=== PATIENT | male | born 1955 | race Caucasian/White ===

== ENCOUNTER → 2022-01-17 07:48 | Outpatient (CLI) | payer OTHER, SELFPAY ==
--- NOTE | ~2022-01-17 | XR_ITS ---
XR hip LT min 2V 01/17/2022 08:13 Indication: Left hip pain Procedure: 2 views left hip Comparison: No prior studies for comparison. Findings: There is moderate osteoarthritis of the left hip. No fracture, subluxation or dislocation. There is atherosclerosis of the femoral vessels. No foreign bodies. Impression: 1: Moderate osteoarthritis of the left hip. Reviewed, dictated and finalized at location A. Impression: 1: Moderate osteoarthritis of the left hip.
== END ==
PROVIDERS: PCP Family Medicine; Visit Provider Family Medicine
DX: M16.12 Unilateral primary osteoarthritis, left hip (principal)
CPT/HCPCS: 73502

== ENCOUNTER → 2022-02-06 11:43 | Outpatient (CLI) | payer OTHER, SELFPAY ==
--- NOTE | ~2022-02-06 | XR_ITS ---
XR knee LT 2V DATE: 02/06/2022 12:06 INDICATION: Left knee pain TECHNIQUE: Standing AP and lateral views COMPARISON: 08/08/2019 left knee FINDINGS: No fracture or dislocation or joint effusion. No periosteal reaction or bone destruction. N o radiopaque intra-articular loose body or chondrocalcinosis. There is mild osteoarthritis involving primarily the patellofemoral joint. Medial lateral compartment joint spaces appear relatively well preserved. No radiopaque intra-articul ar loose body or chondrocalcinosis.. IMPRESSION: Mild patellofemoral osteoarthritis Reviewed, dictated and finalized at location B.
== END ==
PROVIDERS: PCP Family Medicine; Visit Provider Physician Assistant
DX: M17.12 Unilateral primary osteoarthritis, left knee (principal)
CPT/HCPCS: 73560

== ENCOUNTER 2022-03-11 09:57 | Outpatient (CLI) | payer MEDICARE, SELFPAY ==
[2022-03-11 10:58] LABS: Basophils Percent Auto 0.6 % (0.2-1.2); Eosinophils Absolute Auto 0.2 K/mm3 (0-0.3); Hemoglobin 15.4 g/dL (14.0-18.0); Immature Granulocyte Absolute 0.02 K/mm3 (0.00-0.031); Immature Granulocyte Percent A 0.3 % (0-0.5); Lymphocytes Percent Auto 25.4 % (18.3-44.2); Mean Corpuscular HGB Conc 32.8 g/dl (32-36); Mean Corpuscular Hemoglobin 29.3 pg (26-34); Mean Corpuscular Volume 89.5 fl (80-100); Monocytes Absolute Auto 0.5 K/mm3 (0.1-0.6); Monocytes Percent Auto 6.7 % (2.6-8.5); Neutrophils Absolute Auto 4.3 K/mm3 (1.3-6.7); Platelet Count Result 374 k/mm3 (150-375); Red Blood Count 5.25 M/mm3 (4.6-6.20); Red Cell Distribution Width 13.7 % (11.5-14.5); White Blood Count 6.7 K/mm3 (4.5-10.0)
[2022-03-11 11:12] LABS: CRP < 0.5 mg/dL (<1.0); Uric Acid 5.1 mg/dL (3.5-8.5)
[2022-03-11 11:13] LABS: Rheumatoid Factor 20.4 IU/ML (<12)
[2022-03-11 11:26] LABS: Erythrocyte Sedimentation Rate 1 mm/hr (0-20)
== END 2022-03-11 09:58 | disposition home or self-care (01) ==
LOC: ANHLAB 10:15
PROVIDERS: PCP Family Medicine; Visit Provider Orthopaedic Surgery
DX: M16.12 Unilateral primary osteoarthritis, left hip (principal); M19.90 Unspecified osteoarthritis, unspecified site
CPT/HCPCS: 36415; 84550; 85025; 85652; 86038; 86140; 86430

== ENCOUNTER → 2022-03-13 07:58 | Outpatient (CLI) | payer MEDICARE, SELFPAY ==
--- NOTE | ~2022-03-13 | MR_ITS ---
EXAMINATION: MR hip LT wo con DATE: 03/13/2022 08:57 INDICATION: Left hip pain. TECHNIQUE: Magnetic resonance imaging (MRI) of the left hip was performed without intravenous contras t. COMPARISON: Left hip radiographs 03/11/2022 FINDINGS: Bones/cartilage: Bone alignment is normal. No fracture. The hip joints demonstrate osteophytes and acetabular subchond ral cysts. Large [id number] images of right hip demonstrate partial-thickness cartilage loss. Smal l [id number] images of left hip demonstrates full-thickness cartilage loss anterosuperiorly. Labrum: There is a tear of the left acetabular labrum. Large [id number] images demonstrate a tear of the r ight acetabular labrum. Fluid: There is a small left hip joint effusion. No significant trochanteric bursitis. Soft tissues: There are bilateral inguinal hernias containing fat. There is diverticulosis of the colon without verena dence of diverticulitis. Stool distends the rectum. The iliopsoas tendons are normal. The gluteus min imus and gluteus medius tendons are normal. There is moderate tendinopathy of the hamstring origins b ilaterally. IMPRESSION: 1. Severe left hip osteoarthritis and moderate right hip osteoarthritis. 2. Small left hip joint effusion. 3. Bilateral inguinal hernias containing fat. Reviewed, dictated and finalized at location A.
== END ==
PROVIDERS: PCP Family Medicine; Visit Provider Orthopaedic Surgery
DX: M16.12 Unilateral primary osteoarthritis, left hip (principal); M25.452 Effusion, left hip; K40.20 Bilateral inguinal hernia, without obstruction or gangrene, not specified as recurrent
CPT/HCPCS: 73721

== ENCOUNTER 2022-09-16 07:58 | Outpatient (CLI) | payer MEDICARE, SELFPAY ==
--- NOTE | 2022-09-16 08:43 | ECG_ITS ---
Measurements Intervals [place] Rate: 60 P: 28 KS: 206 QRS: 1 QRSD: 120 T: 29 QT: 404 QTc: 404 Interpretive Statements SINUS RHYTHM BASELINE ARTIFACT PRESENT NO PREVIOUS ECG AVAILABLE FOR COMPARISON Electronically Signed On 09-16-2022 11:36:21 SIGNAL TOWER OPERATOR by Neymar Cho M.D.
[2022-09-16 09:13] LABS: Basophils Percent Auto 0.7 % (0.2-1.2); Eosinophils Absolute Auto 0.2 K/mm3 (0-0.3); Eosinophils Percent Auto 3.6 % (0-4.4); Hematocrit 47.2 % (42.0-52.0); Hemoglobin 15.5 g/dL (14.0-18.0); Immature Granulocyte Absolute 0.02 K/mm3 (0.00-0.031); Immature Granulocyte Percent A 0.4 % (0-0.5); Lymphocytes Percent Auto 28.5 % (18.3-44.2); Mean Corpuscular HGB Conc 32.8 g/dl (32-36); Mean Corpuscular Hemoglobin 29.9 pg (26-34); Mean Corpuscular Volume 91.1 fl (80-100); Monocytes Absolute Auto 0.4 K/mm3 (0.1-0.6); Monocytes Percent Auto 6.6 % (2.6-8.5); Neutrophils Absolute Auto 3.4 K/mm3 (1.3-6.7); Neutrophils Percent Auto 60.2 % (45.5-73.1); Platelet Count Result 302 k/mm3 (150-375); Red Blood Count 5.18 M/mm3 (4.6-6.20); Red Cell Distribution Width 13.7 % (11.5-14.5); White Blood Count 5.6 K/mm3 (4.5-10.0)
[2022-09-16 09:23] LABS: Albumin Level 4.7 g/dL (3.5-5.1); Anion Gap 7 mmol/L (8-16); Blood Urea Nitrogen 19 mg/dL (9-20); Calcium 8.6 mg/dL (8.4-10.2); Carbon Dioxide 27 mmol/L (22-30); Chloride 105 mmol/L (98-107); Estimated Glomerular Filt Rate > 60; Glucose 113 mg/dL (65-110); Potassium 4.3 mmol/L (3.4-5.0); Sodium 139 mmol/L (137-145)
[2022-09-16 09:25] LABS: Urine Cotinine NEGATIVE
[2022-09-16 09:26] LABS: Hemoglobin A1C 5.6 % (<5.7)
== END 2022-09-16 07:59 | disposition home or self-care (01) ==
LOC: ANHSURGERY 08:02
PROVIDERS: PCP Family Medicine; Visit Provider Orthopaedic Surgery
DX: M16.12 Unilateral primary osteoarthritis, left hip (principal); Z01.818 Encounter for other preprocedural examination
CPT/HCPCS: 80048; 80307; 82040; 83036; 85025; 86850; 86900; 86901; 87081; 93005

== ENCOUNTER 2022-09-29 01:15 | Day surgery (SDC) | payer MEDICARE, SELFPAY ==
--- NOTE | 2022-09-16 07:53 | PC.NURSE ---
PRE-OP INSTRUCTIONS, PLEASE READ CAREFULLY Report to the Outpatient Waiting Room, entrance under the green pavilion located off [facility], at time _0600_ on date _09/29/22_. Planned Procedure Time: _0730_. PACK A SMALL OVERNIGHT BAG AND LEAVE IN THE CAR ALONG WITH YOUR WALKER Time changes happen often and if your time is changed the preop area will call you the afternoon before. - You and your visitor will be asked to self-screen and do not enter if you have any COVID symptoms. - Only one visitor is requested with a max of two and NO children visitors are allowed at this time. - The patient visitor may be requested to leave or wait in car when not with patient due to distancing restrictions. - A mask is optional within the hospital at this time -VISITING HOURS 8AM-8PM Patients may have clear liquids (water, carbonated beverages, clear teas, apple juice) until 3 hours prior to surgery (0430 AM) with a maximum of 20 ounces. - No food from midnight until time of surgery Take the following medications with a SIP of water the morning of surgery: _NONE_ DO NOT STOP ANY OF YOUR OTHER PRESCRIPTION MEDICATIONS PRIOR TO SURGERY ?EXCEPT THE FOLLOWING Medications to discontinue per DR. CANO - _DICLOFENAC 7 DAYS PRIOR TO SURGERY, Date to take last dose 09/21/22_ Please no deodorant, or body powder the day of surgery. No jewelry (including any body piercings) or valuables the day of surgery, leave them at home. Please take a shower or bath the night before, or the morning of, surgery with an antibacterial soap. Wear comfortable, loose fitting clothing. - Jewelry must be removed prior to entering the operating room. Rings and piercings that are not removed may be cut off. - The hospital will not accept responsibility for valuables. - Please leave all valuables, including medications, at home the day of surgery. If you are going home after surgery, a licensed parcel post truck driver must drive you home. - NO public transportation without another adult if you receive anesthesia. - We recommend that an adult stay with you for 24 hours following discharge. - We also recommend that you do not drive, make important decision, drink alcoholic beverages, or take any drugs that were not prescribed by your health care provider for at least 24 hours after your discharge time. Follow any additional instructions given to you from your surgeon. If you or anyone in your household have experienced Covid symptoms in the past week, please notify your surgeon or the nurse liaison at the phone number below for possible testing. Instructions given to _PATIENT_and asked if any additional questions and then verbalized understanding. Patient advised to call surgeon office or pre surgery nurse liaison [phone] if any additional questions.
[2022-09-16 08:19] VITALS: BP 154/94; PULSE 62; RESP 20; TEMP 36.6; O2SAT 97; BMI 29.2
--- NOTE | 2022-09-26 12:40 | PM.IMHP ---
H&P: HPI History of Present Illness Date/Time: 09/26/22 12:40 Chief Complaint: Left hip DJD Narrative: 66-year-old male patient of Dr. Bates who presents today for a left anterior total arthroplasty. Patient has been having symptoms in his hip for over a year. Most pain is in the groin and anterior lateral hip. He has been on diclofenac 75 mg b.i.d. for a long time. He does take Tylenol intermittently as well. He has pain on a daily basis. It is inhibiting his daily activities. He feels at this point he is having enough symptoms and disability from the pain that he would like to proceed with total hip arthroplasty. X-rays show moderately severe osteoarthritis of the left hip. Review of Systems Review of Systems: All systems reviewed & are unremarkable except as noted in HPI and below PMFSH Past Medical History Medical History Arthritis Arthritis of left hip Bilateral primary osteoarthritis of knee Hyperlipidemia, unspecified Obstructive sleep apnea Obstructive sleep apnea (adult) (pediatric) Osteoarthritis of knees, bilateral Osteoarthritis of right knee Surgical History Surgical History History of right knee surgery Family History Family History Father Diabetes mellitus Heart disease Social History Social History Smoking status: Never smoker Tobacco type: smokeless tobacco Smokeless tobacco user: chewing tobacco Second hand tobacco smoke exposure: No Additional smoking assessment comments: CHEWING TOBACCO X10YRS - QUIT 09/08/22 Alcohol intake: current Alcohol use details: 3-4 DRINKS/MONTH Substance use: never Substance use type: does not use Lack of Transportation: No Lack of Food: Never True Current Housing: I Have Housing Concerned About Future Housing: No Difficulty Paying Gas/Electric Bills: No Difficulty Paying for Meds: No Currently Unemployed: YES Difficulty w/ Childcare or Family Care: No Living arrangements: with family Occupation/Education: retired Gender identity (if verbalized by the patient): Male Sexual Orientation (if Verbalized by the Patient): Straight or Heterosexual Spiritual care concerns: No Meds Home Medications and Allergies Home Medications Medication Instructions Recorded Confirmed Type diclofenac sodium 50 mg 50 mg PO DAILY #90 tabs 08/18/22 09/16/22 Rx tablet,delayed release Allergies Allergy/AdvReac Type Severity Reaction Status Date / Time No Known Drug Allergies Allergy no Verified 09/16/22 08:16 allergies Exam Narrative: 66-year-old male alert. He is 5 ft 8 and 195 lb. His left hip flexes to 95 which causes anterior hip pain. Stinchfield maneuver causes in the same pain. Internal rotation is 5? short of neutral, external rotation to 20. Is significant anterior groin pain with internal rotation. He has normal abduction strength lateral position. His greater trochanters nontender. The skin around the hip and groin crease are all normal. There is no edema in lower extremities. 2+ dorsalis pedis posterior artery pulse. Has normal sensation in left lower extremity. Resp: Auscultation: clear to auscultation bilaterally Cardio: Rate: regular rate Rhythm: regular rhythm Assessment and Plan Assessment and plan (1) Arthritis of left hip: Code(s): M16.12 - Unilateral primary osteoarthritis, left hip Status: Chronic Plan 66-year-old male who has moderately severe osteoarthritis left hip with continued symptoms. Again his symptoms are affecting his daily activities and at this point he prefers to proceed with total hip arthroplasty rather continue nonsurgical treatment. Surgical procedure as well as risks and complications were discussed in detail questions were answered
--- NOTE | 2022-09-26 14:36 | WPDANESEPPF ---
Anes - Initial Pre Proc Eval Procedure: Operation Date: 09/29/22 07:30 Proposed Procedures p Left Total Hip Arthroplasty, Anterior Approach - Holger Gray MD Date/Time: 09/26/22 14:36 Surgeon: Holger Gray MD Pre Op Diagnosis: O.A. Lt Hip Patient Data Age: 66 Gender: M Height: 1.75 m Weight: 89.9 kg Last Vital Signs Temp 97.9 F 09/16/22 08:19 Pulse 62 09/16/22 08:19 Resp 20 09/16/22 08:19 BP 154/94 H 09/16/22 08:19 Pulse Ox 97 09/16/22 08:19 O2 Del Method Room Air 09/16/22 08:19 Allergies Allergy/AdvReac Type Severity Reaction Status Date / Time No Known Drug Allergies Allergy no Verified 09/16/22 08:16 allergies Home Medications Medication Instructions Recorded Confirmed Type diclofenac sodium 50 mg 50 mg PO DAILY #90 tabs 08/18/22 09/16/22 Rx tablet,delayed release Patient hx anesthesia problems: none Family hx anesthesia problems: none Results Review: All pre-operative results and documents have been reviewed as part of the pre-operative evaluation. [facility] Past Medical History Medical History Arthritis Arthritis of left hip Bilateral primary osteoarthritis of knee Hyperlipidemia, unspecified Obstructive sleep apnea Obstructive sleep apnea (adult) (pediatric) Osteoarthritis of knees, bilateral Osteoarthritis of right knee Surgical History Surgical History History of right knee surgery Family History Family History Father Diabetes mellitus Heart disease Social History Social History Smoking status: Never smoker Tobacco type: smokeless tobacco Smokeless tobacco user: chewing tobacco Second hand tobacco smoke exposure: No Additional smoking assessment comments: CHEWING TOBACCO X10YRS - QUIT 09/08/22 Alcohol intake: current Alcohol use details: 3-4 DRINKS/MONTH Substance use: never Substance use type: does not use Lack of Transportation: No Lack of Food: Never True Current Housing: I Have Housing Concerned About Future Housing: No Difficulty Paying Gas/Electric Bills: No Difficulty Paying for Meds: No Currently Unemployed: YES Difficulty w/ Childcare or Family Care: No Living arrangements: with family Occupation/Education: retired Gender identity (if verbalized by the patient): Male Sexual Orientation (if Verbalized by the Patient): Straight or Heterosexual Spiritual care concerns: No Anes - Eval Final PreProcedure Day of Procedure 09/26/22 14:36 Patient weight: obese Heart: regular rate and rhythm Lungs: clear to auscultation Airway: Mallampati scale class III Neurological: alert and oriented Last oral intake: >/= 8 hours ASA classification: III Emergent: no Anesthetic plan: proceed Anesthesia type and monitoring: general ETT and standard monitoring Results Review: All pre-operative results and documents have been reviewed as part of the pre-operative evaluation. Informed Consent: The patient's anesthetic plan and its attendant risks and benefits were discussed with the patient/family/POA. Questions were solicited and answers provided to the satisfaction of the patient/family/POA.
[2022-09-29] VITALS (13 sets, daily range): BP systolic 113–145; BP diastolic 72–101; PULSE 70–93; RESP 10–20; TEMP 35.9–37.5; O2SAT 94–100
--- NOTE | ~2022-09-29 | XR_ITS ---
EXAMINATION: XR surgery orthopedic DATE: 09/29/2022 11:13 INDICATION: TECHNIQUE: Single frontal fluoroscopic image of the left hip was obtained during procedure performed by Dr. Gray. Radiologist was not present for the imaging or procedure. The amount of fluoroscopy t eden used during this procedure was 1.0 minutes. COMPARISON: 03/11/2022 FINDINGS: Resection of the left femoral head and neck and placement of a noncemented left total hip arthroplast y which appears well seated in near-anatomic alignment. No fracture. Expected soft tissue gas at the operative bed. IMPRESSION: 1. Expected appearance during left total hip arthroplasty. Reviewed, dictated and finalized at location B.
--- NOTE | ~2022-09-29 | XR_ITS ---
EXAMINATION: XR hip LT 1V w AP pelvis DATE: 09/29/2022 11:34 INDICATION: Left hip arthroplasty. Postop. TECHNIQUE: An anteroposterior view of the pelvis and single view of left hip were obtained. COMPARISON: Pelvis and left hip radiographs 03/11/2022 FINDINGS: There is a total left hip arthroplasty in near-anatomic alignment. No fracture. There is mi ld right hip osteoarthritis. There is a surgical drain near left hip. IMPRESSION: 1. Total left hip arthroplasty in near-anatomic alignment. Reviewed, dictated and finalized at location A.
[2022-09-29] MEDS: LACTATED RINGERS 1,000 ML 30 ML IV CONT ×2 (06:38→11:38)
[2022-09-29] MEDS: ACETAMINOPHEN 500 MG TABLET 1000 MG PO ×4 (06:39→23:33)
[2022-09-29] MEDS: TRANEXAMIC ACID 1,000MG/ISO100 1,000 MG/100 ML BAG 200 MG IVPB (06:42)
--- NOTE | 2022-09-29 07:09 | WPDHPUPDATE1 ---
History and Physical Update Update Date/Time: 09/29/22 07:09 History and Physical has been reviewed, including an updated exam of the patient. There are NO changes in the patient's condition. Risks, benefits, and alternatives have been discussed and questions answered. Patient agrees to proceed with procedure.
[2022-09-29] MEDS: ceFAZolin 2 GM/D5W 50 ML 2 GM/50 ML BAG IVPB (07:36)
[2022-09-29] MEDS: ceFAZolin SODIUM 1 GM VIAL 3 GM (08:30)
[2022-09-29] MEDS: ceFAZolin SODIUM 1 GM VIAL 2 GM IV PUSH (11:02)
[2022-09-29] MEDS: TRANEXAMIC ACID 1,000 MG/10 ML AMPUL 1000 MG IV PUSH (11:05)
[2022-09-29] MEDS: KETOROLAC 15 MG/ML VIAL (*BKC) IV PUSH ×3 (11:08→23:34)
--- NOTE | 2022-09-29 11:31 | W.PM.PROC2 ---
Procedure Note - Detailed Date of Procedure 09/29/22 Pre-op Diagnosis O.A. Lt Hip Post-op Diagnosis Same Procedure Performed Left PABLO DAA Surgeon Holger Gray MD Manufacturing Management Associate [place] Anesthesia General Description of Procedure Patient was brought to the operating room and general anesthesia was administered. Boots were applied to the feet after soft roll padding applied to the feet and he was transferred to the OSI [place] table and the left hip prepped draped usual fashion. He received 2 g of Ancef weight based vancomycin 1 g of tranexamic acid preoperatively. Fluoroscopic x-ray was obtained and transparency tracing made for additional templating purposes. A 10 cm longitudinal incision was made starting 3 cm lateral to the ASIS. Dissection was carried down to the fascia over the tensor fascia courtney which was exposed and longitudinally incised. The tensor fascia courtney was elevated off the anterior 1/2 of the TFL muscle interval between rectus femoris and TFL developed ligating the crossing branches of ascending lateral femoral circumflex vessels. Retractor was placed anterior to the hip capsule and hip abducted internally rotated and the gluteus minimus elevated off the lateral capsule. Inverted T capsulotomy was made and a femoral neck osteotomy made according to preoperative templating. The head measured 50 mm in diameter with bony eburnation superiorly. The acetabulum was exposed labrum excised remaining articular cartilage curetted. The leg was then externally rotated and extended and the interval between piriformis and conjoined tendon incised which allowed a little bit of recession of the conjoined tendon and allowed the piriformis to the posteriorly. With the leg back horizontal position external rotation traction the acetabulum was prepared under fluoroscopic guidance medialized with a 44 and reaming up to 51 at which time a 51 trial was extremely tight. We reamed to 52 likely and impacted the 52 shell which took a while to fully seat because of his hard bone but full seating was accomplished this was placed at 40? of abduction and anteversion such that the anterior rim of the shell was just below the anterior rim of the acetabulum. Excellent fit was achieved single screw in the ilium 36 inner diameter liner placed without difficulty. The leg was externally rotated and hyperextended at the hip exposing the proximal femur. His bone was very dense in the femur and it took a little bit of extra time with smoothed and rasped being probes to enter the femoral canal properly and broaching proceeded to a size 4 which was 1 size smaller than our templated size but it seemed to have excellent torsional stability. We trialed and employing the transparency and fluoro we could see that we were about 2 or 3 mm longer than our preoperative plan with the 1.5 head on the high offset neck. We countersunk the broach 3 mm and calcar planed and at this time we scrutinized the torsional stability and with repeated testing I could see that there was just a little bit of play. The broach was removed and we broached to a size 5 which took 3 passes to seat flush with the planed neck and this was rock-solid. The size 5 was high offset Actis stem was then fully seated without difficulty after thorough irrigation of the wound and canal. We then trialed. The 1.5 had ample Shuck. The 5 was tight. The size 1.5 x 36 mm ceramic femoral head was impacted onto the clean and dry trunnion after thorough irrigation with Ancef solution the hip reduced stability reconfirmed. Local anesthetic cocktail was injected. The capsular flaps were reapproximated superiorly with 2. Vicryl. The fascia was closed with running 1. Vicryl drain in subcu skin closed with 2 subcutaneous Vicryl and glue EBL was estimated at 900 cc and received 450 back as Cell Saver packed red blood cells. Two additional g of Ancef 1 g of tranexamic acid were given time wound closure. No known complications. Bone qual
--- NOTE | 2022-09-29 11:44 | PM.OP ---
Procedure Note - Brief Procedure Note - Brief Date of procedure: 09/29/22 Pre-op diagnosis: O.A. Lt Hip Left hip DJD Procedure performed: Left anterior total hip arthroplasty Description of procedure: 66-year-old male who underwent left anterior total hip arthroplasty on 09/29. I was involved in the procedure including positioning the patient on the OR table. Versus thing to time surgery as well as assisting getting patient to recovery. Total time spent her his 4 hours Surgeon: PITO Crain
[2022-09-29] MEDS: fentaNYL CITRATE INJ (*CRX) 100 MCG/2 ML VIAL 25 MCG IV PUSH ×4 (12:32→12:54)
--- NOTE | 2022-09-29 13:25 | ADMGEN ---
This patient, Oswaldo Ferrera, was admitted to [facility] Surg Room 304-02. Patient/family oriented to hospital policies and general routines including ID bracelet, bed and alarms, visiting hours, pain management, procedures, bathroom and other care routines, personal items, smoking policy, room service/diet, and visiting hours. Information on how to activate the Rapid Response Team has been discussed. Patient/Family are encouraged to report perceived risks to care and to ask questions if they do not understand what they are told or what they should do.
[2022-09-29] MEDS: SODIUM CHLORIDE 0.9% IV 1,000 ML 125 ML IV CONT (13:37)
[2022-09-29] MEDS: oxyCODONE HCL (*CRX) 5 MG TAB IR PO ×3 (13:37→21:22)
[2022-09-29] MEDS: ceFAZolin 1 GM/NS 50 ML 1 GM/50 ML BAG IVPB ×2 (14:41→23:35)
[2022-09-29] MEDS: SENNA/DOCUSATE SODIUM TABLET 2 TAB PO (17:22)
[2022-09-29] MEDS: FAMOTIDINE 20 MG TABLET PO (21:23)
[2022-09-30] MEDS: oxyCODONE HCL (*CRX) 5 MG TAB IR PO ×3 (00:52→09:10)
[2022-09-30 02:42] VITALS: BP 108/58; PULSE 90; RESP 14; TEMP 36.9; O2SAT 97
[2022-09-30 05:55] VITALS: BP 101/49; PULSE 79; RESP 14; TEMP 36.4; O2SAT 97
[2022-09-30] MEDS: ACETAMINOPHEN 500 MG TABLET 1000 MG PO (05:58)
--- NOTE | 2022-09-30 06:17 | PM.PNORT ---
Subjective Subjective Date/Time Seen: 09/30/22 06:17 Postop day 1 patient is alert. Afebrile vital signs are stable. Pain is very well controlled. Morning labs are not completed yet. Dressing is dry. Drain is out. Patient was up walking yesterday with therapy and is comfortable. We will plan have the patient work with therapy this morning and if he continues do well plan on discharging him home later this morning. Objective Data Vital Signs Vital Signs: Vital Signs - 24 hr 09/29/22 06:30 09/29/22 07:00 09/29/22 11:38 Temperature 36.5 C 37.5 C Pulse Rate 72 70 87 Respiratory Rate 16 15 Blood Pressure 124/101 H 128/89 123/72 Pulse Oximetry 100 100 Oxygen Delivery Room Air Simple Face Mask Oxygen Flow Rate 8 09/29/22 11:50 09/29/22 12:05 09/29/22 12:20 Temperature Pulse Rate 82 79 76 Respiratory Rate 12 10 L 14 Blood Pressure 113/77 125/74 143/82 H Pulse Oximetry 100 100 95 Oxygen Delivery Simple Face Mask Simple Face Mask Room Air Oxygen Flow Rate 8 8 09/29/22 12:35 09/29/22 12:50 09/29/22 13:00 Temperature Pulse Rate 76 74 80 Respiratory Rate 14 12 20 Blood Pressure 143/82 H 139/84 132/90 Pulse Oximetry 96 94 95 Oxygen Delivery Room Air Room Air Room Air Oxygen Flow Rate 09/29/22 14:47 09/29/22 15:01 09/29/22 14:47 Temperature 35.9 C L Pulse Rate 77 Respiratory Rate 18 Blood Pressure 145/83 H Pulse Oximetry 99 Oxygen Delivery Room Air Room Air Oxygen Flow Rate 09/29/22 18:47 09/29/22 22:47 09/29/22 20:00 Temperature 36.6 C 36.8 C Pulse Rate 93 92 92 Respiratory Rate 14 14 14 Blood Pressure 124/74 118/72 Pulse Oximetry 96 98 98 Oxygen Delivery Room Air Oxygen Flow Rate 09/30/22 02:42 09/30/22 05:55 Temperature 36.9 C 36.4 C Pulse Rate 90 79 Respiratory Rate 14 14 Blood Pressure 108/58 L 101/49 L Pulse Oximetry 97 97 Oxygen Delivery Oxygen Flow Rate Intake/Output Intake/Output: Intake & Output 09/27/22 09/28/22 09/29/22 09/30/22 22:59 23:59 23:59 23:59 Intake Total 837 1550 Output Total 0 700 Balance 837 850 Meds/Results Medications: Active Medications Generic Name Dose Route Start Last Admin Trade Name Freq PRN Reason Stop Dose Admin Acetaminophen 1,000 mg 09/29/22 13:02 09/30/22 05:58 Acetaminophen 500 Mg Tablet PO 1,000 mg Q6HR BESS Administration Apixaban 2.5 mg 09/30/22 09:00 Apixaban 2.5 Mg Tablet PO Q12HR [facility] Celecoxib 200 mg 09/30/22 09:00 Celecoxib 200 Mg Capsule PO DAILY [facility] Cephalexin HCl 500 mg 09/30/22 12:00 Cephalexin 500 Mg Capsule PO Q6HR BESS Famotidine 20 mg 09/29/22 21:00 09/29/22 21:23 Famotidine 20 Mg Tablet PO 20 mg Q12HR BESS Administration Hydroxyzine HCl 50 mg 09/29/22 13:02 Hydroxyzine Hcl 25 Mg Tablet PO Q4H PRN Itching Vancomycin HCl 1,000 mg in 250 mls @ 250 mls/hr 09/29/22 18:00 09/30/22 05:58 Vancomycin 1,000 Mg/D5w 250 Ml IVPB 09/30/22 06:59 250 mls/hr Q12H BESS Administration Cefazolin Sodium 1 gm in 50 mls @ 100 mls/hr 09/29/22 15:30 09/30/22 00:05 Ancef 1 Gm/Ns 50 Ml IVPB 09/30/22 07:59 Infused Q8H [facility] Infusion Morphine Sulfate 2 mg 09/29/22 13:02 Morphine Sulfate (*Crx) 2 Mg/Ml Inj IV PUSH Q3H PRN Pain Rated 7-10 Naloxone HCl 0.1 mg 09/29/22 13:02 Naloxone Hcl 0.4 Mg/Ml Vial IV PUSH Q2M PRN Opiate Reversal Ondansetron HCl 4 mg 09/29/22 13:02 Ondansetron Inj 4 Mg/2 Ml Vial IV PUSH Q4H PRN Nausea And Vomiting Oxycodone HCl 5 mg 09/29/22 13:02 Oxycodone Hcl (*Crx) 5 Mg Tab Ir PO Q4H PRN Pain Rated 4-6 Oxycodone HCl 5 mg 09/29/22 13:02 09/30/22 05:58 Oxycodone Hcl (*Crx) 5 Mg Tab Ir PO 5 mg Q4HR BESS Administration Polyethylene Glycol 17 gm 09/30/22 09:00 Polyethylene Glycol 3350 17 Gm Powd.Pack PO QAM BESS Senna/Docusate Sodium 2 tab 09/29/22 17:00 09/29/22 17:22 Senna/Docusate S
--- NOTE | 2022-09-30 06:21 | P.DS_ITS ---
DS: Admitting Diagnosis Discharge Date 09/30 Admitting Diagnosis left hip DJD DS: Discharge Diagnosis Discharge Diagnosis (1) Arthritis of left hip: Code(s): M16.12 - Unilateral primary osteoarthritis, left hip Status: Chronic DS: Summary Hospital Course Hospital Course: 66-year-old male who underwent left total hip arthroplasty anterior approach on 09/29. Underwent the procedure without complications. Postoperatively he has been afebrile vital signs are stable. Neurovascular is intact. Pain is well controlled with scheduled Tylenol as well as oxycodone 5 mg. Patient is on Celebrex 200 mg a day for the 1st 10 days for heterotopic bone formation prophylaxis. He will go home on a 1 week course of Keflex as well. He is on Eliquis for DVT prophylaxis. He is weight-bearing as tolerated. Postop day 1 patient was alert. Afebrile vital signs are stable. His drain is out and his dressing is dry. He was up walking the day of surgery and is very comfortable and doing well. Morning labs were not done at the time of dictation. Patient will be discharged home on 09/30. Patient will follow-up at his appointed dates. Patient was advised any questions or concerns he is to call the office. Time Spent with Patient Time attestation: Total time spent providing and/or coordinating discharge services: Discharge Plan Discharge Patient Disposition: Home, Self-Care Discharge Instructions: HOLGER GRAY M.D [facility], [address] [address] POST-OPERATIVE DISCHARGE INSTRUCTIONS ANTERIOR TOTAL HIP ARTHROPLASTY 1. Move toes/feet up and down every hour while awake. 2. Be up walking every hour while awake. 3. Use cane in hand opposite of side of hip surgery or walker as comfort allows. Avoid sitting in a chair unless eating, receiving visitors or using the toilet. 4. When resting, lie on back with leg elevated above heart to minimize swelling. Significant swelling could indicate a blood clot and if this occurs, call the office (or go to the ER) to have a venous ultrasound performed. 5. Wound Care: Keep dry sponge on wound for 2 weeks. Use minimal tape. 6. Follow weight bearing status as instructed. 7. May shower with dressing off. Patient Instructions: Pain Management (DC) Follow-up/Referrals: Holger Gray MD [Physician] - Keep Reg. Scheduled Appt. Discharge Medications: New acetaminophen 500 mg Tablet 1,000 mg PO Q6HR Qty: 90 0RF Eliquis 2.5 mg Tablet 2.5 mg PO Q12HR Qty: 70 0RF celecoxib [Celebrex] 200 mg Capsule 200 mg PO DAILY Qty: 10 0RF sennosides-docusate sodium [Senokot-S] 8.6-50 mg Tablet 2 tab-cap PO BID Qty: 60 0RF cephalexin 500 mg Capsule 500 mg PO Q6HR Qty: 28 0RF polyethylene glycol 3350 [Miralax] 17 gram Powder In Packet 17 g PO QAM Qty: 30 0RF oxycodone 5 mg Tablet 5 mg PO Q4HR Qty: 40 0RF Discontinued diclofenac sodium 50 mg tablet,delayed release (DR/EC) 50 mg PO DAILY Qty: 90 0RF
[2022-09-30] MEDS: ceFAZolin 1 GM/NS 50 ML 1 GM/50 ML BAG IVPB (07:07)
[2022-09-30 07:45] LABS: Basophils Percent Auto 0.2 % (0.2-1.2); Eosinophils Percent Auto 0.1 % (0-4.4); Hematocrit 34.1 % (42.0-52.0); Hemoglobin 11.2 g/dL (14.0-18.0); Immature Granulocyte Absolute 0.07 K/mm3 (0.00-0.031); Immature Granulocyte Percent A 0.5 % (0-0.5); Lymphocytes Absolute Auto 1.93 K/mm3 (0.9-3.2); Lymphocytes Percent Auto 14.1 % (18.3-44.2); Mean Corpuscular HGB Conc 32.8 g/dl (32-36); Mean Corpuscular Hemoglobin 28.9 pg (26-34); Mean Corpuscular Volume 87.9 fl (80-100); Mean Platelet Volume 8.9 fl (7.4-10.4); Monocytes Absolute Auto 1.5 K/mm3 (0.1-0.6); Monocytes Percent Auto 11.3 % (2.6-8.5); Neutrophils Absolute Auto 10.1 K/mm3 (1.3-6.7); Neutrophils Percent Auto 73.8 % (45.5-73.1); Platelet Count Result 222 k/mm3 (150-375); Red Blood Count 3.88 M/mm3 (4.6-6.20); Red Cell Distribution Width 13.6 % (11.5-14.5); White Blood Count 13.7 K/mm3 (4.5-10.0)
[2022-09-30 07:58] LABS: Anion Gap 5 mmol/L (8-16); Blood Urea Nitrogen 18 mg/dL (9-20); Calcium 7.4 mg/dL (8.4-10.2); Carbon Dioxide 23 mmol/L (22-30); Chloride 105 mmol/L (98-107); Estimated CRCL calculation 70 ml/min; Estimated Glomerular Filt Rate > 60; Glucose 137 mg/dL (65-110); Potassium 4.1 mmol/L (3.4-5.0); Sodium 133 mmol/L (137-145)
[2022-09-30] MEDS: CELECOXIB 200 MG CAPSULE PO (09:10)
[2022-09-30] MEDS: APIXABAN 2.5 MG TABLET PO (09:11)
[2022-09-30] MEDS: FAMOTIDINE 20 MG TABLET PO (09:11)
[2022-09-30] MEDS: polyethylene glycoL 3350 17 GM POWD.PACK PO (09:11)
[2022-09-30] MEDS: SENNA/DOCUSATE SODIUM TABLET 2 TAB PO (09:11)
[2022-09-30 09:33] VITALS: O2SAT 97
== END 2022-09-30 11:00 | disposition home or self-care (01) ==
LOC: ANHSURGERY 06:02 → ANH3MEDSUR 13:06
PROVIDERS: Physician Assistant Surgical; PCP Family Medicine; Visit Provider Orthopaedic Surgery
PROC: (CPT 27130; principal; 2022-09-29 07:30)
DX: M16.12 Unilateral primary osteoarthritis, left hip (principal); E78.5 Hyperlipidemia, unspecified; G47.33 Obstructive sleep apnea (adult) (pediatric); Z87.891 Personal history of nicotine dependence
CPT/HCPCS: 27130; 36415; 73501; 80048; 80307; 82040; 83036; 85025; 86850; 86900; 86901; 87081; 93005; 97110; 97116; 97161; 97165; 97530; 97535; 99199; A9270; C1776; J0171; J0690; J1100; J1170; J1885; J2250; J2270; J2370; J2405; J2704; J2795; J3010; J3370; J7030; J7040; J7120

== ENCOUNTER 2023-09-28 07:41 | Outpatient (CLI) | payer MEDICARE, SELFPAY | END 2023-09-28 07:42 | disposition home or self-care (01) | LOC: ANHAUDASC 07:42 | PROVIDERS: PCP Family Medicine; Visit Provider Otolaryngology | DX: H90.3 Sensorineural hearing loss, bilateral (principal) | CPT/HCPCS: 92557; 92567 ==

== ENCOUNTER 2024-11-24 08:01 | Outpatient (RCR) | payer MEDICARE, SELFPAY ==
--- NOTE | 2024-11-24 09:21 | OPREHPOC ---
Outpatient Therapy Plan of Care This is a Multidisciplinary Plan of Care that may contain components documented by all disciplines (PT, OT, and ST.) PT Problem 1 PT Problem #1 Knowledge Deficit PT Goal 1 Goal / Goal Update Independent and compliant with HEP. Target Visit 4 PT Problem 2 PT Problem #2 Impaired Strength PT Goal 1 Goal / Goal Update Pt to improve gross LE strength 5/5 for improved knee stability. Pt to improve lower abdominal strength to 5/5 for improved lumbar stability. Target Visit 8 PT Problem 3 PT Problem #3 Impaired Range of Motion PT Goal 1 Goal / Goal Update Pt to reach full L knee extension AROM. Target Visit 8 PT Problem 4 PT Problem #4 Impaired Functional Mobility PT Goal 1 Goal / Goal Update Pt to report 10% or less disability on LEFS. Target Visit 8 PT Problem 5 PT Problem #5 Pain PT Goal 1 Goal / Goal Update Pt to report no knee pain in the last 5 days. Target Visit 8
--- NOTE | 2024-11-24 09:22 | PTOPEVAL1 ---
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 He states he hasn't felt this good in 10 years and currently denies pain. States his doctor wants him to strengthen his knees, hips and core. He states he currently exercises 3 days per week using his home gym. Prior to getting the steroid shot he had some difficulty putting on shoes/socks, squatting/ lifting, prolonged standing and walking long distances. Reported Pain Level Pain Score 0: Self Report Assessment PT Clinical Summary Mr. Ferrera is a 69 yo male who enters the clinic with L knee pain and a diagnosis of primarily L knee OA on x-ray. He recently got a cortisone shot in the knee and currently denies pain, however he demonstrates moderate LE weakness primarily in the hip flexors and knee flexors as well as lower abdominal weakness. He is also slightly limited in L knee extension ROM. He will benefit from skilled PT intervention to improve on these deficits to be able to perform daily functional and recreational tasks with less pain. Plan of Care Interventions Electrical Stimulation,Gait Training,Hot Pack/Cold Pack,Manual Therapy,Neuro Re-education,Patient/ Caregiver Education,Therapeutic Activities, Therapeutic Exercise,Self-Care/Home Management PT Services Indicated Yes Treatment Frequency and 2x/week for 8 visits Duration These treatments will address the objective and functional deficits as defined above. The patient will be advanced safely and appropriately in order for the patient to progress towards his/her prior level of function. Additional exercises will be introduced and as well as a comprehensive home exercise program upon discharge, if needed, ?to ensure carryover of functional gains achieved in the clinic. This treatment plan has been reviewed and agreement upon by the patient.
--- NOTE | 2024-12-27 08:57 | OPREHPOC ---
Outpatient Therapy Plan of Care This is a Multidisciplinary Plan of Care that may contain components documented by all disciplines (PT, OT, and ST.) PT Problem 1 PT Problem #1 Knowledge Deficit PT Goal 1 Goal / Goal Update Independent and compliant with HEP. Target Visit 4 Progress Met PT Problem 2 PT Problem #2 Impaired Strength PT Goal 1 Goal / Goal Update Pt to improve gross LE strength 5/5 for improved knee stability. not met Pt to improve lower abdominal strength to 5/5 for improved lumbar stability. not met Target Visit 8 Progress Not Met PT Problem 3 PT Problem #3 Impaired Range of Motion PT Goal 1 Goal / Goal Update Pt to reach full L knee extension AROM. Target Visit 8 Progress Not Met PT Problem 4 PT Problem #4 Impaired Functional Mobility PT Goal 1 Goal / Goal Update Pt to report 10% or less disability on LEFS. Target Visit 8 Progress Not Met PT Problem 5 PT Problem #5 Pain PT Goal 1 Goal / Goal Update Pt to report no knee pain in the last 5 days. Target Visit 8 Progress Met
--- NOTE | 2024-12-27 08:57 | PTOPDC ---
Assessment and note entered by JT File, PT Evaluation Information Assessment Status Discharge ICD-10 Condition Codes (PT) Pain in left knee M25.562 Other ICD-10 Condition Codes ( M17.12 PT) Onset 11/23/24 Subjective Information Pt reports the knee feels Good today. he reports it has continued to feel good through PT. he reports he does feel the shot may be wearing off a bit earlier than he anticipated. he reports the knees have not really hurt over the past few weeks , but reports he has had other pains like in his Achilles that the has dealt with for months. Reported Pain Level Pain Score 0: Self Report Assessment PT Clinical Summary mr. pugh presents to skilled PT services for his 8th skilled PT for his L knee. he presents today with no pain, and having no pain for the last several weeks. he ambulates with efficient gait mechanics achieving over 3 ft/sec on the 6 minute walk test. he also ambulates up and down steps with reciprocal mechanics and no need for UE assist. he did not achieve his ROM or strength goals, but is compliant with his HEP, and will continue to perform this independently at home to continue to work towards these goals. he is limited slightly in standing activities due to a chronic Achilles injury. he was educated to speak with his MD regarding PT for this issue. at this time, patient will DC therapy for the knee. Plan of Care PT Services Indicated Yes
== END 2024-12-27 20:00 | disposition home or self-care (01) ==
LOC: CHSPT 08:01
PROVIDERS: Visit Provider Orthopaedic Surgery
DX: M17.12 Unilateral primary osteoarthritis, left knee (principal); M25.562 Pain in left knee
CPT/HCPCS: 97110; 97112; 97150; 97161; 97530

== ENCOUNTER 2025-03-15 09:59 | Outpatient (CLI) | payer MEDICARE, SELFPAY ==
--- NOTE | ~2025-03-15 | MR_ITS ---
EXAMINATION: MR knee LT wo con DATE: 03/15/2025 10:30 INDICATION: Unilateral primary osteoarthritis of the left knee TECHNIQUE: Magnetic resonance imaging (MRI) of the left knee was performed without intravenous contrast. Sequences included coronal PD-weighted FSE, coronal PD-weighted FS FSE, sagittal T2-weighted FSE, sagittal PD-weighted FS FSE and axial PD weighted fat saturated FSE. COMPARISON: None. FINDINGS: Medial compartment: Complex medial meniscal tear which includes a partial-thickness radial tear extending across the inner half of the meniscus at the junction of the body and posterior horn with a longitudinal horizontal tear plane extending to the superior articular surface of the posterior horn. Partial-thickness chondral ulceration with superimposed deep chondral fissuring along the anterior to central weightbearing medial femoral condyle with small central subchondral osteophytes and mild subarticular edema-like and cystlike change along the lateral margin of the anterior weightbearing medial femoral condyle. There are small marginal ossified swelling the lateral margin of the anterior weightbearing medial femoral condyle and the juxtaposed medial tip of the intercondylar eminence from ladder with overlying deep chondral fissuring and mild subarticular edema-like signal change. Additional partial-thickness ismael dral ulceration along the posterior medial and posterior margin of the medial tibial plateau with small focus of underlying subarticular cystlike change near the site of the radial meniscal tear. Lateral compartment: Lateral meniscus is normal. Articular cartilage is normal. Patellofemoral compartment: Deep chondral fissuring along the trochlear groove and inferior aspect of the medial trochlea with small central subchondral osteophytes. Mild partial- thickness cartilage loss with subtle chondral surface regularity along the lateral trochlea. Patellar cartilage is relatively preserved. Ligaments and tendons: Posterior cruciate ligament is normal. The anterior cruciate ligament demonstrates a normal angle relative to Blumensaat line. It appears markedly thickened with increased intrasubstance signal surrounding intact appearing linear fibers with a celery stalk appearance consistent with mucoid degenerati on. The medial collateral ligament and fibular collateral ligament complex are normal. The extensor mechanism is normal. The visualized medial and lateral hamstring tendons as well as the iliotibial band are normal. Fluid: Physiologic amount of fluid in the joint space. No loose osteochondral bodies identified. Osseous/other: No fracture or pathologic marrow replacing process. Low signal intensity bone island at the anterior aspect of the medial tibial plateau. IMPRESSION: 1. Complex medial meniscal tear. 2. Mild osteoarthritis with high-grade chondromalacia in both the medial and patellofemoral compartments. 3. Prominent thickening and increased T2 signal at the anterior cruciate ligament consistent with mucoid degeneration. Correlate with physical exam to asses for degree of functional competence. Reviewed, dictated and finalized at location A. IMPRESSION: 1. Complex medial meniscal tear. 2. Mild osteoarthritis with high-grade chondromalacia in both the medial and pa tellofemoral compartments. 3. Prominent thickening and increased T2 signal at the anterior cruciate ligame nt consistent with mucoid degeneration. Correlate with physical exam to asses f or degree of functional competence.
== END 2025-03-15 10:00 | disposition home or self-care (01) ==
LOC: MICIMG 10:01
PROVIDERS: PCP Family Medicine; Visit Provider Orthopaedic Surgery
DX: M17.12 Unilateral primary osteoarthritis, left knee (principal); S83.232A Complex tear of medial meniscus, current injury, left knee, initial encounter; X58.XXXA Exposure to other specified factors, initial encounter
CPT/HCPCS: 73721